=== PATIENT | female | born 1995 | race African-American/Black ===

== ENCOUNTER 2018-02-23 15:09 | Emergency (ER) | payer SELFPAY ==
[~2018-02-23] VITALS: Ht 170.2 cm; Wt 74.4 kg
[2018-02-23 15:43] VITALS: BP 152/99
== END 2018-02-23 15:58 | disposition home or self-care (01) ==
LOC: ER 15:11
DX: J45.909 Unspecified asthma, uncomplicated (principal); Z88.1 Allergy status to other antibiotic agents; Z88.8 Allergy status to other drugs, medicaments and biological substances
CPT/HCPCS: 99283; A4606; Z7610